=== PATIENT | female | born 1990 | race Caucasian/White ===

== ENCOUNTER 2019-01-12 09:53 | Emergency (ER) | payer OTHER ==
[~2019-01-12] VITALS: Ht 157.5 cm; Wt 79.0 kg
[~2019-01-12 09:53] MED LIST: ERYTOPOI LEFT EYE; NO MEDS
[2019-01-12 09:56] VITALS: BP 131/63; PULSE 89; RESP 19; Ht 157.5 cm; Wt 79.0 kg
[2019-01-12] MEDS ORDERED: LORAZEPAM 0.5 MG TAB PO ONE (10:30)
--- NOTE | 2019-01-12 11:48 | ERD ---
ER Documentation Chief Complaint Chief Complaint headache; numbness all over the body; shortness of breath; feeling stressed HPI 28-year-old female presents with multiple complaints. She states symptoms started several months ago after breakup. She has had difficulty finding a job and has lost jobs. She has multiple complaints including but not limited to sensation of shortness of breath, numbness of her face and body. She states that she hears frequency related to her tinnitus in her right ear but denies voices or hallucinations. Patient complains of insomnia as well. Patient admits that many of her symptoms may be related to anxiety or stress. She has been told she was depressed in the past. She denies any previous psychiatric treatment however.. she states that she feels like she has chemicals in her saliva and is requsting testing for this. She then states that her thyroid is likely causing her symptoms but she has never been diagnosed with thyroid disease. Patient denies any alcohol or drug abuse. She states that she has been abstinent from alcohol for a few months. ROS All systems reviewed and are negative except as per history of present illness. Medications Home Meds Active Scripts Erythromycin* (Erythromycin* Ophthalmic) 1 Applic Oint, 1 APPLIC LEFT EYE QID for 7 Days, EA Prov:TRINH BOLTON PA-C 09/02/16 Reported Medications [No Meds] No Conflict Check 07/02/10 Allergies Allergies: Coded Allergies: No Known Allergies (Verified Allergy, Mild, 07/02/10) PMhx/Soc History of Surgery: No Anesthesia Reaction: No Hx Neurological Disorder: No Hx Respiratory Disorders: No Hx Cardiac Disorders: No Hx Psychiatric Problems: No Hx Miscellaneous Medical Probl: No Hx Alcohol Use: Yes (SOCIAL) Hx Substance Use: No Hx Tobacco Use: No Smoking Status: Never smoker FmHx Family History: No diabetes, No coronary disease, No other Physical Exam Vitals Vital Signs Date Temp Pulse Resp B/P (MAP) Pulse Ox O2 O2 Flow FiO2 Time Delivery Rate 01/12/19 98.3 89 19 131/63 96 09:56 (85) Physical Exam Const: No acute distress. Difficult historian somewhat tangential. Able to return to topic however. Head: Atraumatic Eyes: Normal Conjunctiva ENT: Normal External Ears, Nose and Mouth. Neck: Full range of motion. No meningismus. Resp: Clear to auscultation bilaterally Cardio: Regular rate and rhythm, no murmurs Abd: Soft, non tender, non distended. Normal bowel sounds Skin: No petechiae or rashes Back: No midline or flank tenderness Ext: No cyanosis, or edema Neur: Awake and alert Psych: Normal Mood and Affect Result Diagram: 01/12/19 1036 01/12/19 1036 Results 24 hrs Laboratory Tests Test 01/12/19 10:33 01/12/19 10:36 01/12/19 10:45 01/12/19 11:07 Urine Color YELLOW Urine Clarity SLIGHTLY CLOUDY Urine pH 5.0 Urine Specific 1.029 [place] Urine Ketones NEGATIVE mg/dL Urine Nitrite NEGATIVE mg/dL Urine Bilirubin NEGATIVE mg/dL Urine NEGATIVE mg/dL Urobilinogen Urine Leukocyte NEGATIVE Marlyn/ul Esterase Urine Microscopic 10 /HPF RBC Urine Microscopic 2 /HPF WBC Urine Squamous FEW /HPF Epithelial Cells Urine Bacteria FEW /HPF Urine Mucus MODERATE /HPF Urine Hemoglobin 1+ mg/dL Urine Glucose NEGATIVE mg/dL Urine Total NEGATIVE mg/dl Protein Urine Opiates Negative Screen Urine Negative Barbiturates Urine Negative Amphetamines Screen Urine Negative Benzodiazepines Screen Urine Cocaine Negative Screen Urine Negative Cannabinoids White Blood Count 6.0 10^3/ul Red Blood Count 4.21 10^6/ul Hemoglobin 12.3 g/dl Hematocrit 38.0 % Mean Corpuscular 90.3 fl Volume Mean Corpuscular 29.2 pg Hemoglobin Mean Corpuscular 32.4 g/dl Hemoglobin Concen t Red Cell 13.3 % Distribution Width Platelet Count 281 10^3/UL Mean Platelet 10.5 fl Volume Immature 0.200 % Granulocytes % Neutrophils % 63.8 % Lymphocytes % 24.9 % Monocytes % 6.7 % Eosinophils % 3.7 % Basophils % 0.7 % Nucleated Red 0.0 /100WBC Blood Cells % Immature 0.010 10^3/ul Granulocytes # Neutrophils # 3.8 10^3/ul Lymphocytes # 1.5 10^3/ul Monocytes # 0.4 10^3/ul Eosinophils # 0.2 10^3/ul Basophils # 0.0 10^3/ul Nucleated Red 0.0 10^3/ul Blood Cells # Sodium Level 142 mmol/L Potassium Level 4.2 mmol/L Chloride Level 105 mmol/L Carbon Dioxide 27 mmol/L Level Anion Gap 10 Blood Urea 15 mg/dl Nitrogen Creatinine 0.48 mg/dl Est Glomerular > 60 mL/min Filtrat Rate mL/min Glucose Level 87 mg/dl Calcium Level 9.8 mg/dl Total Bilirubin 0.4 mg/dl Direct Bilirubin 0.00 mg/dl Indirect 0.4 mg/dl Bilirubin Aspartate Amino 29 IU/L Transf (AST/SGOT) Alanine 32 IU/L Aminotransferase (ALT/SGPT) Alkaline 84 IU/L Phosphatase Total Protein 7.9 g/dl Albumin 4.5 g/dl Globulin 3.40 g/dl Albumin/Globulin 1.32 Ratio Thyroid 1.460 MIU/L Stimulating Hormone (TSH) Salicylates Level < 1.0 mg/dl Acetaminophen < 10.0 ug/ml Level Ethyl Alcohol < 10.0 mg/dl Level Bedside Urine pH 6.0 (LAB) Bedside Urine 1+ Protein (LAB) Bedside Urine Negative Glucose (UA) Bedside Urine Negative Ketones (LAB) Bedside Urine 1+ Blood Bedside Urine Negative Nitrite (LAB) Bedside Urine Negative Leukocyte Esteras e (L Test 01/12/19 11:08 POC Beta HCG, NEGATIVE Qualitative Current Medications Medications Dose Sig/Andres Start Time Status Last (Trade) Ordered Route PRN Stop Time Admin Dose Reason Admin Lorazepam 0.5 mg ONCE ONCE 01/12/19 DC 01/12/19 (Ativan) PO 10:30 10:32 01/12/19 10:31 Procedures/MDM CBC and CMP normal. TSH normal. Drug abuse screen negative, as well as Tylenol and aspirin level. Social work was consulted. Patient presents with multiple somatic complaints over the last several months. No identifiable metabolic disturbance or medical causes. She is not floridly psychotic and and she denies homicidal or suicidal ideations. Given patient's uncertain outpatient follow-up and risk of continuation of worsening of symptoms and potential negative consequences tele-psych recommended by social work to evaluate for continued t reatment whether inpatient or outpatient.. Departure Diagnosis: Primary Impression: Multiple complaints Condition: Stable ISABELLA THOMAS MD Jan 12, 2019 11:48
--- NOTE | 2019-01-12 12:30 | PSY ---
Date/Time of Note Date/Time of Note DATE: 01/12/19 TIME: 15:22 Psychiatric Subjective Eval Consent Pt consented to telemedicine: Yes Subjective Evaluation Patient location: emergency Chief Complaint: headache; numbness all over the body; shortness of breath; feeling stressed History of present illness HPI: 28 yo female with ho depression, came to [facility] with numerous somatic complaints, numbness, shortness of breath, was feeling stressed. Was asked to see MD for psych consult. MD met with pt. She was very vague, somewhat disorganized, anxious, stressed. She iterated how stressed she is. Would deny anxiety and depression then admit it.Denies psychosis. Denies si or hi or drug use. Then tells MD she wants a job at [employer]. Then tells MD she doesnt want a job and just feels stress like "gas in my ears" and is worried about watching television too much and scared to go back to school and then tells MD her family is not on disability. Past psych hx: pt reports she once saw a psychiatrist, denies ho psych admits or suicide attempts PMHx: denies nkda meds: denies MSE: well groomed, pleasant, disorganized, distractible, pensive, unclear delusions or avh, denies si/hi, impaired insight/reliability Imp: 28 yo female very disorganized [facility] recommend parallel hx from family given her disorganization; this will help clarify pt's mental state For moderate agitation Zyprexa 5mg po prn For severe agitation chlorpromazine 25mg im prn Medical history Problems Medical Problems: (1) Corneal abrasion Status: Acute (2) Multiple complaints Status: Acute Allergies: Coded Allergies: No Known Allergies (Verified Allergy, Mild, 07/02/10) Psychiatric Objective Eval Mental Status Examination: Laboratory Results Laboratory Tests Test 01/12/19 10:33 01/12/19 10:36 01/12/19 10:45 01/12/19 11:07 Urine Color YELLOW Urine Clarity SLIGHTLY CLOUDY Urine pH 5.0 Urine Specific 1.029 [place] Urine Ketones NEGATIVE mg/dL Urine Nitrite NEGATIVE mg/dL Urine Bilirubin NEGATIVE mg/dL Urine NEGATIVE mg/dL Urobilinogen Urine Leukocyte NEGATIVE Marlyn/ul Esterase Urine Microscopic 10 /HPF RBC Urine Microscopic 2 /HPF WBC Urine Squamous FEW /HPF Epithelial Cells Urine Bacteria FEW /HPF Urine Mucus MODERATE /HPF Urine Hemoglobin 1+ mg/dL Urine Glucose NEGATIVE mg/dL Urine Total NEGATIVE mg/dl Protein Urine Opiates Negative Screen Urine Negative Barbiturates Urine Negative Amphetamines Screen Urine Negative Benzodiazepines Screen Urine Cocaine Negative Screen Urine Negative Cannabinoids White Blood Count 6.0 10^3/ul Red Blood Count 4.21 10^6/ul Hemoglobin 12.3 g/dl Hematocrit 38.0 % Mean Corpuscular 90.3 fl Volume Mean Corpuscular 29.2 pg Hemoglobin Mean Corpuscular 32.4 g/dl Hemoglobin Concen t Red Cell 13.3 % Distribution Width Platelet Count 281 10^3/UL Mean Platelet 10.5 fl Volume Immature 0.200 % Granulocytes % Neutrophils % 63.8 % Lymphocytes % 24.9 % Monocytes % 6.7 % Eosinophils % 3.7 % Basophils % 0.7 % Nucleated Red 0.0 /100WBC Blood Cells % Immature 0.010 10^3/ul Granulocytes # Neutrophils # 3.8 10^3/ul Lymphocytes # 1.5 10^3/ul Monocytes # 0.4 10^3/ul Eosinophils # 0.2 10^3/ul Basophils # 0.0 10^3/ul Nucleated Red 0.0 10^3/ul Blood Cells # Sodium Level 142 mmol/L Potassium Level 4.2 mmol/L Chloride Level 105 mmol/L Carbon Dioxide 27 mmol/L Level Anion Gap 10 Blood Urea 15 mg/dl Nitrogen Creatinine 0.48 mg/dl Est Glomerular > 60 mL/min Filtrat Rate mL/min Glucose Level 87 mg/dl Calcium Level 9.8 mg/dl Total Bilirubin 0.4 mg/dl Direct Bilirubin 0.00 mg/dl Indirect 0.4 mg/dl Bilirubin Aspartate Amino 29 IU/L Transf (AST/SGOT) Alanine 32 IU/L Aminotransferase (ALT/SGPT) Alkaline 84 IU/L Phosphatase Total Protein 7.9 g/dl Albumin 4.5 g/dl Globulin 3.40 g/dl Albumin/Globulin 1.32 Ratio Thyroid 1.460 MIU/L Stimulating Hormone (TSH) Salicylates Level < 1.0 mg/dl Acetaminophen < 10.0 ug/ml Level Ethyl Alcohol < 10.0 mg/dl Level Bedside Urine pH 6.0 (LAB) Bedside Urine 1+ Protein (LAB) Bedside Urine Negative Glucose (UA) Bedside Urine Negative Ketones (LAB) Bedside Urine 1+ Blood Bedside Urine Negative Nitrite (LAB) Bedside Urine Negative Leukocyte Esteras e (L Test 01/12/19 11:08 POC Beta HCG, NEGATIVE Qualitative Assessment and Plan Recommendation/Plan Multiple antipsychotics: No Discharge Disposition: Community Legal Status: Voluntary MARGUERITEKELLYOlinda Jan 12, 2019 12:30
--- NOTE | 2019-01-12 16:08 | QN ---
Documentation Comment Observation Note: Time: 4 hours Family Hx: No Hypertension Evaluation: Multiple exams showed improving symptoms and no evidence of clinical decompensation The patient was evaluated by telepsychiatrist Dr Echavarria, recommended discharging the patient for outpatient follow-up I discussed the findings with the patient. I advised the patient to follow-up with her psychiatrist in about 2-3 days, sooner if needed and return if any concern. Disclaimer: Inadvertent spelling and grammatical errors are likely due to EHR/dictation software use and do not reflect on the overall quality of patient care. Also, please note that the electronic time recorded on this note does not necessarily reflect the actual time of the patient encounter. MARLO VILLANUEVA MD Jan 12, 2019 16:08
== END 2019-01-12 16:05 | disposition home or self-care (01) ==
LOC: FTE 09:53 → E/R 16:05
DX: R51 Headache (principal); R20.0 Anesthesia of skin; R06.02 Shortness of breath; F43.9 Reaction to severe stress, unspecified
CPT/HCPCS: 80053; 80307; 81001; 81025; 84443; 85025; Z7502; Z7610; 81003; 99283

== ENCOUNTER 2019-01-29 18:02 | Emergency (ER) | payer OTHER ==
[~2019-01-29] VITALS: Wt 81.6 kg
--- NOTE | 2019-01-29 20:47 | ERD ---
ER Documentation Chief Complaint Chief Complaint ANXIETY, HOT FLASHES X'S 6 MONTHS HPI 28-year-old female presenting with multiple complaints including feelings of anxiety, poor sleep, abdominal pain, headaches, muscle aches, and increased stress in her life. She was here a few days ago and had a psychiatric evalua tion. She states that her symptoms have been going on for the past few months. She has no new symptoms. No suicidal or homicidal ideations. Denies any hallucinations. Denies any drug use. She is here because she is worried about her symptoms being from a serious cause. She has not followed up with outpatient mental health or primary care physician. She does state that she has not had her period for several months as well. ROS All systems reviewed and are negative except as per history of present illness. Medications Home Meds Active Scripts Erythromycin* (Erythromycin* Ophthalmic) 1 Applic Oint, 1 APPLIC LEFT EYE QID for 7 Days, EA Prov:TRINH BOLTON PA-C 09/02/16 Reported Medications [No Meds] No Conflict Check 07/02/10 Allergies Allergies: Coded Allergies: No Known Allergies (Verified Allergy, Mild, 07/02/10) PMhx/Soc Medical and Surgical Hx: pt denies Medical Hx, pt denies Surgical Hx History of Surgery: No Anesthesia Reaction: No Hx Neurological Disorder: No Hx Respiratory Disorders: No Hx Cardiac Disorders: No Hx Psychiatric Problems: No Hx Miscellaneous Medical Probl: Yes Hx Alcohol Use: Yes (SOCIAL) Hx Substance Use: No Hx Tobacco Use: No Smoking Status: Never smoker FmHx Family History: No diabetes Physical Exam Vitals Physical Exam Const: No acute distress Head: Atraumatic Eyes: Normal Conjunctiva, PERRLA, EOMI ENT: Normal External Ears, Nose and Mouth. Neck: Full range of motion. No meningismus. Resp: Clear to auscultation bilaterally Cardio: Regular rate and rhythm, no murmurs Abd: Soft, non tender, non distended. Normal bowel sounds Skin: No petechiae or rashes Back: No midline or flank tenderness Ext: No cyanosis, or edema Neur: Awake and alert, normal speech, oriented, no facial asymmetry, cranial nerves intact. Strength and sensations intact in all 4 extremities Psych: Normal Mood and Affect Results 24 hrs Laboratory Tests Test 01/29/19 21:05 POC Beta HCG, Qualitative NEGATIVE Current Medications Medications Dose Sig/Andres Start Time Status Last (Trade) Ordered Route PRN Stop Time Admin Dose Reason Admin Lorazepam 1 mg ONCE ONCE 01/29/19 DC 01/29/19 (Ativan) PO 21:00 01/29/19 21:27 21:01 Procedures/MDM Labs done and reviewed: test negative MDM Patient is presenting with complaints of anxiety and multiple physical symptoms are seemingly unrelated. Vitals are stable and she is afebrile. Had a long discussion with the patient regarding her mental health. I feel that she likely has somatization disorder. She was here a few days ago and had labs done that did not show any significant abnormalities. Patient was treated with a dose of oral Ativan with some improvement of her anxiety. I strongly recommended outpatient psychiatry and therapy. Patient is agreeable with this plan. She states she already has resources at home for outpatient mental health. Return precautions were given. Patient was discharged in stable condition. Departure Diagnosis: Primary Impression: Multiple complaints Additional Impressions: Stress at home Anxiety with somatization Condition: Stable MAYUR HUMPHREY MD January 29, 2019 20:47
[2019-01-29] MEDS ORDERED: LORAZEPAM 1 MG TAB PO ONE (21:00)
[2019-01-29 21:28] VITALS: BP 104/57; PULSE 80; RESP 16
== END 2019-01-29 22:25 | disposition home or self-care (01) ==
LOC: E/R 18:02
DX: F41.9 Anxiety disorder, unspecified (principal)
CPT/HCPCS: 81025; Z7502; Z7610; 99283